=== PATIENT | female | born 1930 | race Caucasian/White ===

== ENCOUNTER → 2016-04-26 | Outpatient (CLI) | payer BC ==
[~2016-04-26] MED LIST: ADVIN25/60 INH; AMT/50 PO; APIX1TAB PO; ATV5X PO; CALC-20 PO; DOCU-94 PO; FERR325T5 PO; FRCT/ PO; FURO-85 PO; FURO40TA3 PO; HYDR-4717 PO; INSDGI SC; MAGN400T6 PO; NVLGI SC; OXGN; POLY335025 PO; PROCRIT SQ; SIMV-151 PO; SPRIN/30 INH
[2016-04-26 12:04] LABS: HEMATOCRIT 27.2 % (37-47)
== END | disposition home or self-care (01) ==
LOC: C.LAB 12:17
PROVIDERS: ATTEND Internal Medicine
DX: D64.9 Anemia, unspecified (principal); N18.4 Chronic kidney disease, stage 4 (severe)

== ENCOUNTER → 2016-05-24 | Outpatient (CLI) | payer BC ==
[2016-05-24 18:53] LABS: HEMATOCRIT 29.4 % (37-47)
== END | disposition home or self-care (01) ==
LOC: C.LABSPEC 18:42
PROVIDERS: ATTEND Internal Medicine Nephrology
DX: D64.9 Anemia, unspecified (principal); N18.4 Chronic kidney disease, stage 4 (severe)

== ENCOUNTER → 2016-06-20 | Outpatient (CLI) | payer BC ==
[2016-06-20 19:13] LABS: HEMATOCRIT 31.1 % (37-47)
--- NOTE | 2016-08-26 14:09 | CODING QUERY NO DIAGNOSIS ---
TREATMENT RENDERED WITHOUT A DIAGNOSIS 29 To promote full compliance with coding requirements relating to patient care, physician participation is requested in all cases of sap business objects developer uncertainty. Please assist us with providing a diagnosis/symptom for the test(s) below: A diagnosis/symptom was not documented on your Order. A valid diagnosis/symptom is required to bill all insurances. Please remember that we are unable to code a diagnosis of rule out, probable, possible, questionable, or suspected. DOS 06/20/16 Tests that require a diagnosis: * HEMOGLOBIN & HEMATOCRIT DIAGNOSIS: Provider Signature: Date: Thank you Stephani Sandoval Health Information Management Once completed, please kindly fax back to [phone] For questions please call [phone]
== END | disposition home or self-care (01) ==
LOC: C.LAB 19:03
PROVIDERS: ATTEND Internal Medicine
DX: D63.1 Anemia in chronic kidney disease (principal)

== ENCOUNTER → 2016-06-28 | Outpatient (CLI) | payer BC ==
[2016-06-28 13:27] LABS: HEMATOCRIT 32.7 % (37-47); MEAN CELL VOLUME 95.9 fL (80-100); MEAN CORPUSCULAR HEMOGLOBIN 31.4 pg (25-34); MEAN CORPUSCULAR HGB CONC 32.7 g/dl (32-36); MEAN PLATELET VOLUME 10.2 fL (7.4-10.4); PLATELET COUNT 155 K/uL (130-400); RED BLOOD COUNT 3.41 M/uL (4.2-5.4); WHITE BLOOD COUNT 5.56 K/uL (4.8-10.8)
[2016-06-28 13:32] LABS: ALT/SGPT 23 U/L (12-78); BLOOD UREA NITROGEN 43 mg/dl (7-18); BUN/CREATININE RATIO 22.8 (10-20); CALCIUM 9.6 mg/dl (8.5-10.1); CARBON DIOXIDE 34 mmol/L (21-32); CHLORIDE 103 mmol/L (98-107); GLUCOSE 96 mg/dl (70-99); POTASSIUM 4.2 mmol/L (3.5-5.1); SODIUM 144 mmol/L (136-145)
[2016-06-28 13:35] LABS: ALB/GLOB RATIO 1.1 (0.9-2)
[2016-06-28 13:36] LABS: ALKALINE PHOSPHATASE 84 U/L (45-117); AST/SGOT 18 U/L (15-37); FERRITIN 158.1 ng/ml (8.0-388.0); TOTAL IRON BINDING CAPACITY 235 mcg/dl (250-450)
[2016-06-28 13:40] LABS: URINE APPEARANCE CLEAR (CLEAR); URINE BILIRUBIN NEG (NEG); URINE COLOR YELLOW; URINE EPITHELIAL CELL AUTO 0-5 /lpf (0-5); URINE NITRITE NEG (NEG); URINE PH 7.5 (4.5-7.5); URINE SPECIFIC GRAVITY 1.006 (1.000-1.030); UROBILINOGEN NEG (NEG)
[2016-06-28 13:43] LABS: ESTIMATED AVERAGE GLUCOSE 131 mg/dl; HA1C FLAG Normal (Normal)
[2016-06-28 13:53] LABS: MANUAL MICROSCOPIC REQUIRED? NO; REVIEW REQ? NO
[2016-06-28 13:56] LABS: URINE PROTIEN/CREAT RATIO 0.3 (0-0.2)
== END | disposition home or self-care (01) ==
LOC: C.LAB1850 11:59
PROVIDERS: ATTEND Internal Medicine Nephrology
DX: E11.9 Type 2 diabetes mellitus without complications (principal); D64.9 Anemia, unspecified; N25.81 Secondary hyperparathyroidism of renal origin; R80.9 Proteinuria, unspecified; I12.9 Hypertensive chronic kidney disease with stage 1 through stage 4 chronic kidney disease, or unspecified chronic kidney disease; N18.4 Chronic kidney disease, stage 4 (severe)

== ENCOUNTER → 2016-07-02 | Outpatient (CLI) | payer BC ==
--- NOTE | 2016-07-02 10:54 | DIAGNOSTIC IMAGING REPORT ---
CT OF THE CHEST WITHOUT IV CONTRAST CLINICAL HISTORY: Congestive failure. Prior abnormal CT scan. COMPARISON STUDY: CT scan dated 07/08/2014, chest x-ray dated 03/20/2016 CT DOSE: 296.66 mGy.cm TECHNIQUE: CT of the thorax was performed from the thoracic inlet to the lung bases. Images are reviewed in the axial, sagittal, and coronal planes. IV contrast was not administered for this examination. FINDINGS: Thyroid: Imaged portions of the thyroid gland are normal in appearance. Thoracic aorta: The thoracic aorta is normal in course and caliber, noting standard 3 vessel arch anatomy. Heart: The heart is enlarged. There is a small pericardial effusion. There are mild to moderate coronary artery calcifications. There is a pacemaker present. Lungs and pleural spaces: There are no significant pleural effusions. There is no lobar consolidation. There is mild subpleural interstitial thickening. There are dependent atelectatic changes. Mediastinum: There are minimally enlarged mediastinal lymph nodes measuring up to 11 mm in short axis. The previously identified right paratracheal mass is no longer evident.. Joy: There is no evidence of pathologic hilar adenopathy given the limitations of a noncontrast study. Axilla: Clear. Upper abdomen: Partially visualized upper abdominal viscera is within normal limits. Skeletal structures: There are no lytic or blastic osseous lesions. The bones are osteopenic. There is a T8 and L1 compression fracture. IMPRESSION: 1. Interval resolution of the previously identified right paratracheal mass 2. Minimally enlarged mediastinal lymph nodes 3. Cardiomegaly and coronary artery calcifications 4. No pleural effusions. No evidence of focal pulmonary consolidation. 5. Bibasilar atelectasis. Mild subpleural interstitial thickening. Electronically signed by: Aldair Almonte M.D. 07/02/2016 10:52 AM Dictated Date/Time: 07/02/2016 10:46 AM
== END | disposition home or self-care (01) ==
LOC: C.CTS 10:27
PROVIDERS: ATTEND Internal Medicine Critical Care Medicine
DX: R91.8 Other nonspecific abnormal finding of lung field (principal); Z99.81 Dependence on supplemental oxygen; I25.10 Atherosclerotic heart disease of native coronary artery without angina pectoris; I51.7 Cardiomegaly

== ENCOUNTER → 2016-08-15 | Outpatient (CLI) | payer BC ==
[2016-08-15 19:13] LABS: HEMATOCRIT 34.1 % (37-47)
== END | disposition home or self-care (01) ==
LOC: C.LAB 17:15
PROVIDERS: ATTEND Internal Medicine Nephrology
DX: D64.9 Anemia, unspecified (principal); N18.4 Chronic kidney disease, stage 4 (severe)

== ENCOUNTER → 2016-09-13 | Outpatient (CLI) | payer BC ==
[2016-09-13 15:39] LABS: HEMATOCRIT 32.5 % (37-47)
--- NOTE | 2016-11-01 07:12 | CODING QUERY NO DIAGNOSIS ---
TREATMENT RENDERED WITHOUT A DIAGNOSIS To promote full compliance with coding requirements relating to patient care, physician participation is requested in all cases of turf sales person uncertainty. Please assist us with providing a diagnosis/symptom for the test(s) below: A diagnosis/symptom was not documented on your Order. A valid diagnosis/symptom is required to bill all insurances. Please remember that we are unable to code a diagnosis of rule out, probable, possible, questionable, or suspected. Tests that require a diagnosis: * HEMOGLOBIN & HEMATOCRIT DIAGNOSIS: Provider Signature: Date: Thank you Marium Dash [employer] Information Management Once completed, please kindly fax back to [phone] For questions please call [phone]
== END | disposition home or self-care (01) ==
LOC: C.LABSPEC 14:30
PROVIDERS: ATTEND Internal Medicine Nephrology
DX: D64.9 Anemia, unspecified (principal)

== ENCOUNTER → 2016-10-12 | Outpatient (CLI) | payer BC ==
[2016-10-12 15:14] LABS: HEMATOCRIT 30.6 % (37-47)
== END | disposition home or self-care (01) ==
LOC: C.LABSPEC 11:43
PROVIDERS: ATTEND Internal Medicine Nephrology
DX: D64.9 Anemia, unspecified (principal); N18.4 Chronic kidney disease, stage 4 (severe)

== ENCOUNTER → 2016-10-30 | Outpatient (CLI) | payer BC ==
[2016-10-30 11:34] LABS: HEMATOCRIT 31.4 % (37-47); MEAN CELL VOLUME 98.7 fL (80-100); MEAN CORPUSCULAR HEMOGLOBIN 32.7 pg (25-34); MEAN CORPUSCULAR HGB CONC 33.1 g/dl (32-36); MEAN PLATELET VOLUME 10.4 fL (7.4-10.4); PLATELET COUNT 126 K/uL (130-400); RED BLOOD COUNT 3.18 M/uL (4.2-5.4); WHITE BLOOD COUNT 5.31 K/uL (4.8-10.8)
[2016-10-30 11:43] LABS: ALT/SGPT 19 U/L (12-78); AST/SGOT 19 U/L (15-37); BLOOD UREA NITROGEN 39 mg/dl (7-18); CARBON DIOXIDE 34 mmol/L (21-32); CHLORIDE 105 mmol/L (98-107); GLUCOSE 187 mg/dl (70-99); POTASSIUM 4.5 mmol/L (3.5-5.1); SODIUM 142 mmol/L (136-145)
[2016-10-30 11:46] LABS: ALB/GLOB RATIO 1.1 (0.9-2); ALKALINE PHOSPHATASE 71 U/L (45-117); FERRITIN 179.8 ng/ml (8.0-388.0); TOTAL IRON BINDING CAPACITY 214 mcg/dl (250-450)
[2016-10-30 11:59] LABS: URINE PROTIEN/CREAT RATIO 0.2 (0-0.2)
[2016-10-30 14:08] LABS: URINE APPEARANCE CLEAR (CLEAR); URINE BILIRUBIN NEG (NEG); URINE COLOR YELLOW; URINE NITRITE NEG (NEG); URINE PH 7.5 (4.5-7.5); URINE SPECIFIC GRAVITY 1.015 (1.000-1.030); UROBILINOGEN NEG (NEG)
[2016-10-30 14:12] LABS: MANUAL MICROSCOPIC REQUIRED? NO; REVIEW REQ? NO
== END | disposition home or self-care (01) ==
LOC: C.LABSPEC 11:04
PROVIDERS: ATTEND Internal Medicine Nephrology
DX: D64.9 Anemia, unspecified (principal); N25.81 Secondary hyperparathyroidism of renal origin; R80.9 Proteinuria, unspecified; I10 Essential (primary) hypertension; R60.9 Edema, unspecified; N18.4 Chronic kidney disease, stage 4 (severe)

== ENCOUNTER → 2016-10-31 | Outpatient (CLI) | payer BC | END | disposition home or self-care (01) | LOC: C.LABSPEC 15:13 | PROVIDERS: ATTEND Internal Medicine Nephrology | DX: D64.9 Anemia, unspecified (principal); N25.81 Secondary hyperparathyroidism of renal origin; R80.9 Proteinuria, unspecified; R60.9 Edema, unspecified; I12.9 Hypertensive chronic kidney disease with stage 1 through stage 4 chronic kidney disease, or unspecified chronic kidney disease; N18.4 Chronic kidney disease, stage 4 (severe) ==

== ENCOUNTER → 2016-12-08 | Outpatient (CLI) | payer BC ==
[2016-12-08 13:08] LABS: HEMATOCRIT 29.7 % (37-47)
== END | disposition home or self-care (01) ==
LOC: C.LABSPEC 10:23
PROVIDERS: ATTEND Internal Medicine Nephrology
DX: D64.9 Anemia, unspecified (principal)

== ENCOUNTER → 2017-01-04 | Outpatient (CLI) | payer BC ==
[2017-01-04 15:41] LABS: HEMATOCRIT 29.7 % (37-47)
== END | disposition home or self-care (01) ==
LOC: C.LABSPEC 09:45
PROVIDERS: ATTEND Internal Medicine Nephrology
DX: D64.9 Anemia, unspecified (principal); N18.4 Chronic kidney disease, stage 4 (severe)

== ENCOUNTER → 2017-02-26 | Outpatient (CLI) | payer BC ==
[2017-02-26 17:24] LABS: HEMATOCRIT 31.3 % (37-47); HEMOGLOBIN 9.9 g/dL (12.0-16.0)
--- NOTE | 2017-05-21 10:46 | CODING QUERY NO DIAGNOSIS ---
: 1929 To promote full compliance with coding requirements relating to patient care, physician participation is requested in all cases of hydraulic specialist uncertainty. Please assist us with providing a diagnosis/symptom for the test(s) below: A diagnosis/symptom was not documented on your order. A valid diagnosis/symptom is required to bill all insurances. Please remember that we are unable to code a diagnosis of rule out, probable, possible, questionable, or suspected. Tests that require a diagnosis: DOS: 12/2016 through 10/2017 * Hemoglobin + Hematocrit (recurring order, unable to read some dates on Allscript order) DIAGNOSIS: Provider Signature: Date: Thank you Jade Rojas Health Information Management Once completed, please kindly fax back to [phone] For questions please call [phone]
== END | disposition home or self-care (01) ==
LOC: C.LABSPEC 16:20
PROVIDERS: ATTEND Internal Medicine Nephrology
DX: D64.9 Anemia, unspecified (principal); N18.4 Chronic kidney disease, stage 4 (severe)

== ENCOUNTER → 2017-02-28 | Outpatient (CLI) | payer BC ==
[2017-03-01 12:10] LABS: HEMATOCRIT 29.7 % (37-47); MEAN CORPUSCULAR HEMOGLOBIN 31.3 pg (25-34); MEAN CORPUSCULAR HGB CONC 31.3 g/dl (32-36); MEAN PLATELET VOLUME 10.3 fL (7.4-10.4); PLATELET COUNT 135 K/uL (130-400); RED BLOOD COUNT 2.97 M/uL (4.2-5.4); WHITE BLOOD COUNT 4.78 K/uL (4.8-10.8)
[2017-03-01 12:18] LABS: BLOOD UREA NITROGEN 44 mg/dl (7-18); BUN/CREATININE RATIO 24.8 (10-20); CALCIUM 8.9 mg/dl (8.5-10.1); CARBON DIOXIDE 34 mmol/L (21-32); CHLORIDE 100 mmol/L (98-107); CREATININE 1.79 mg/dl (0.60-1.20); GLUCOSE 191 mg/dl (70-99); POTASSIUM 4.1 mmol/L (3.5-5.1); SODIUM 137 mmol/L (136-145)
[2017-03-01 12:23] LABS: FERRITIN 171.1 ng/ml (8.0-388.0); TOTAL IRON BINDING CAPACITY 225 mcg/dl (250-450)
== END | disposition home or self-care (01) ==
LOC: C.LABSPEC 16:54
PROVIDERS: ATTEND Internal Medicine Nephrology
DX: D64.9 Anemia, unspecified (principal); N25.81 Secondary hyperparathyroidism of renal origin; R60.9 Edema, unspecified; R80.9 Proteinuria, unspecified; I10 Essential (primary) hypertension

== ENCOUNTER → 2017-02-28 | Outpatient (CLI) | payer BC ==
[2017-03-02 16:11] LABS: URINE APPEARANCE CLEAR (CLEAR); URINE BILIRUBIN NEG (NEG); URINE COLOR YELLOW; URINE EPITHELIAL CELL AUTO >30 /lpf (0-5); URINE NITRITE NEG (NEG); URINE PH 7.5 (4.5-7.5); URINE SPECIFIC GRAVITY 1.019 (1.000-1.030); UROBILINOGEN NEG (NEG)
[2017-03-02 16:20] LABS: MANUAL MICROSCOPIC REQUIRED? NO; REVIEW REQ? NO
[2017-03-02 16:27] LABS: URINE PROTIEN/CREAT RATIO 0.2 (0-0.2); URINE TOTAL PROTEIN 20.6 mg/dl (0-11.9)
== END | disposition home or self-care (01) ==
LOC: C.LABSPEC 16:50
PROVIDERS: ATTEND Internal Medicine Nephrology
DX: D64.9 Anemia, unspecified (principal); R60.9 Edema, unspecified; I10 Essential (primary) hypertension; R80.9 Proteinuria, unspecified; N25.81 Secondary hyperparathyroidism of renal origin

== ENCOUNTER → 2017-03-28 | Outpatient (CLI) | payer BC ==
[2017-03-28 14:17] LABS: HEMATOCRIT 28.4 % (37-47)
== END | disposition home or self-care (01) ==
LOC: C.LABSPEC 13:57
PROVIDERS: ATTEND Internal Medicine Nephrology
DX: D64.9 Anemia, unspecified (principal); N18.4 Chronic kidney disease, stage 4 (severe)

== ENCOUNTER → 2017-04-30 | Outpatient (CLI) | payer BC ==
--- NOTE | 2017-04-30 17:55 | DIAGNOSTIC IMAGING REPORT ---
VENOUS DOPP LOWER EXT UNILAT CLINICAL HISTORY: R LEG DVT PHLEBITIS,THROMBO PHLEBITIS pain. Edema. TECHNIQUE: Venous Doppler COMPARISON STUDY: 08/26/2015 FINDINGS: Negative study IMPRESSION: Negative study The above report was generated using voice recognition software. It may contain grammatical, syntax or spelling errors. Electronically signed by: Faizan Tsang M.D. 04/30/2017 5:54 PM Dictated Date/Time: 04/30/2017 5:52 PM
== END | disposition home or self-care (01) ==
LOC: C.ULTR 17:12
PROVIDERS: ATTEND Internal Medicine
DX: I80.201 Phlebitis and thrombophlebitis of unspecified deep vessels of right lower extremity (principal)

== ENCOUNTER → 2017-05-22 | Outpatient (CLI) | payer BC ==
[2017-05-22 17:37] LABS: HEMATOCRIT 29.4 % (37-47); HEMOGLOBIN 9.4 g/dL (12.0-16.0)
--- NOTE | 2017-06-26 13:26 | CODING QUERY NO DIAGNOSIS ---
TREATMENT RENDERED WITHOUT A DIAGNOSIS To promote full compliance with coding requirements relating to patient care, physician participation is requested in all cases of chief telephone operator uncertainty. Please assist us with providing a diagnosis/symptom for the test(s) below: A diagnosis/symptom was not documented on your Order. A valid diagnosis/symptom is required to bill all insurances. Please remember that we are unable to code a diagnosis of rule out, probable, possible, questionable, or suspected. Tests that require a diagnosis: DOS: 06/01/17 *HEMOGLOBIN & HEMATOCRIT DIAGNOSIS: Provider Signature: Date: Thank you Paula Burns No[employer] Trav[employer] Information Management Once completed, please kindly fax back to [phone] For questions please call [phone]
== END | disposition home or self-care (01) ==
LOC: C.LABSPEC 16:15
PROVIDERS: ATTEND Internal Medicine Nephrology
DX: D64.9 Anemia, unspecified (principal); N18.4 Chronic kidney disease, stage 4 (severe)

== ENCOUNTER → 2017-07-17 | Outpatient (CLI) | payer BC ==
[2017-07-17 18:21] LABS: HEMATOCRIT 29.4 % (37-47); HEMOGLOBIN 9.5 g/dL (12.0-16.0)
== END | disposition home or self-care (01) ==
LOC: C.LABSPEC 17:40
PROVIDERS: ATTEND Internal Medicine Nephrology
DX: D64.9 Anemia, unspecified (principal); N18.4 Chronic kidney disease, stage 4 (severe)

== ENCOUNTER → 2017-08-14 | Outpatient (CLI) | payer BC ==
[2017-08-14 14:23] LABS: HEMOGLOBIN 9.1 g/dL (12.0-16.0)
== END | disposition home or self-care (01) ==
LOC: C.LABSPEC 14:12
PROVIDERS: ATTEND Internal Medicine Nephrology
DX: D64.9 Anemia, unspecified (principal); N18.4 Chronic kidney disease, stage 4 (severe)

== ENCOUNTER → 2017-08-19 | Outpatient (CLI) | payer BC | END | disposition home or self-care (01) | LOC: C.PATHSPEC 17:57 | PROVIDERS: ATTEND Dermatology | DX: L82.1 Other seborrheic keratosis (principal) ==

== ENCOUNTER → 2017-11-08 | Outpatient (CLI) | payer BC ==
[2017-11-06 17:22] LABS: HEMOGLOBIN 8.9 g/dL (12.0-16.0); MEAN CELL VOLUME 97.9 fL (80-100); MEAN CORPUSCULAR HEMOGLOBIN 31.1 pg (25-34); MEAN CORPUSCULAR HGB CONC 31.8 g/dl (32-36); MEAN PLATELET VOLUME 10.5 fL (7.4-10.4); PLATELET COUNT 135 K/uL (130-400); RED CELL DISTRIBUTION WIDTH CV 13.6 % (11.5-14.5); RED CELL DISTRIBUTION WIDTH SD 48.5 fL (36.4-46.3); WHITE BLOOD COUNT 6.16 K/uL (4.8-10.8)
[2017-11-06 17:47] LABS: ALBUMIN 3.9 gm/dl (3.4-5.0); BLOOD UREA NITROGEN 49 mg/dl (7-18); CALCIUM 8.9 mg/dl (8.5-10.1); CARBON DIOXIDE 32 mmol/L (21-32); CREATININE 1.78 mg/dl (0.60-1.20); GLUCOSE 108 mg/dl (70-99); PHOSPHORUS 2.8 mg/dl (2.5-4.9); POTASSIUM 4.3 mmol/L (3.5-5.1); SODIUM 141 mmol/L (136-145); TRANSFERRIN 177 mg/dl (200-360)
== END | disposition home or self-care (01) ==
LOC: C.LABSPEC 11:40
PROVIDERS: ATTEND Internal Medicine Nephrology
DX: D50.9 Iron deficiency anemia, unspecified (principal); N25.81 Secondary hyperparathyroidism of renal origin; R80.9 Proteinuria, unspecified; R60.9 Edema, unspecified; N18.4 Chronic kidney disease, stage 4 (severe)

== ENCOUNTER → 2017-12-05 | Outpatient (CLI) | payer BC ==
[2017-12-05 16:02] LABS: HEMATOCRIT 29.5 % (37-47); HEMOGLOBIN 9.3 g/dL (12.0-16.0)
== END | disposition home or self-care (01) ==
LOC: C.LABSPEC 15:24
PROVIDERS: ATTEND Internal Medicine Nephrology
DX: D64.9 Anemia, unspecified (principal); N18.4 Chronic kidney disease, stage 4 (severe)

== ENCOUNTER 2018-12-31 17:20 | Observation (INO) ==
[2018-12-31] MEDS ORDERED: ASPIRIN CHEW 324 MG PO STA (18:05)
[2018-12-31] MEDS ORDERED: NITROGLYCERIN 2% OINTMENT 30GM TUBE EXT ONE (18:05)
[2018-12-31 18:14] LABS: Basophils # (auto) 0.02 K/uL (0-0.2); Basophils % (auto) 0.4 %; Eosinophils # (auto) 0.34 K/uL (0-0.5); Eosinophils % (auto) 7.1 %; Hematocrit (blood only) 31.4 % (37-47); Hemoglobin 9.8 g/dL (12.0-16.0); Lymphocytes # (auto) 0.74 K/uL (1.2-3.4); Lymphocytes % (auto) 15.4 %; Mean Corpuscular Hemoglobin 31.6 pg (25-34); Mean Corpuscular Hgb Conc 31.2 g/dL (32-36); Mean Corpuscular Volume 101.3 fL (80-100); Mean Platelet Volume 10.1 fL (7.4-10.4); Monocytes # (auto) 0.42 K/uL (0.11-0.59); Monocytes % (auto) 8.7 %; Neutrophils # (auto) 3.29 K/uL (1.4-6.5); Neutrophils % (auto) 68.4 %; Platelet Count 146 K/uL (130-400); RDW Coefficient of Variation 14.2 % (11.5-14.5); RDW Standard Deviation 52.3 fL (36.4-46.3); White Blood Count 4.81 K/uL (4.8-10.8)
--- NOTE | 2018-12-31 18:27 | XRay Report ---
XR chest 1V portable HISTORY: Atypical Chest Pain COMPARISON: Chest 04/12/2018. FINDINGS: The cardiac silhouette remains moderately enlarged. No pneumothorax. Suspect trace bilatera l pleural effusions and mild congestive change. This is similar to the prior study. Stable linear sca rlike density within the left lower lung zone. Right-sided single lead pacemaker is again noted. No n ew focal lung consolidations to suggest pneumonia. IMPRESSION: Cardiomegaly with mild congestive change and trace bilateral pleural effusions. This is similar to th e prior study. Electronically signed by: Liban Winston M.D. 12/31/2018 6:25 PM
[2018-12-31 18:32] LABS: Albumin Level 4.4 gm/dl (3.4-5.0); BUN Creatinine Ratio 25.9 (10-20); Creatinine Clr Calc Pharmacy 22.2 ml/min; Est GFR (African American) 32.5; Est GFR (Non-African American) 28.1; Potassium 4.1 mmol/L (3.5-5.1)
[2018-12-31 18:37] LABS: Albumin Globulin Ratio 1.1 (0.9-2); Bilirubin,Total 0.3 mg/dl (0.2-1); Globulin 3.9 gm/dl (2.5-4.0); Total Protein 8.3 gm/dl (6.4-8.2); Troponin I 0.044 ng/ml (0-0.045)
[2018-12-31] MEDS ORDERED: HydrALAZINE HCL 20 MG/ML VIAL IV STA ×2 (18:39→19:18)
[2018-12-31] MEDS ORDERED: LORazepam 0.5 MG TAB PO STA (19:54)
--- NOTE | 2018-12-31 20:28 | Emergency Department Note ---
Entered by Alistair Koenig acting as a scribe for Vinay Fortune DO History of Present Illness General Chief complaint: Chest Pain Stated complaint: CHEST PAIN, HYPERTENSION Source: patient History of Present Illness Onset (ago): hour(s) (5.5) Location: chest Pain Consistency: + now resolved Quality: + other (pressure) Associated symptoms: + denies other symptoms (jaw pain, arm pain, sweating), + headaches and + shortness of breath; no nausea/vomiting The patient is an 88 y/o female w/ PMHx of CHF, CKD, HTN who presents to the ED w/ CC of now resolved chest pressure that lasted an hour an began 5.5 hours ago. The patient states she felt like she was having a heart attack today. She reports her heart was racing and pounding out of her chest. The patient notes she had chest pressure that lasted an hour. She states she currently has a headache, and she was short of breath during her episode. The patient denies jaw pain, arm pain, nausea, vomiting, and sweating during her episode. She reports a history of an [place] and notes her symptoms felt very similar to today's episode. The patient notes her at home nurse took her blood pressure, and it was in the 190s systolic. She denies current pain. The patient also denies a history or COPD and asthma. Home Medications Home Medications Medication Instructions Recorded Confirmed Type magnesium oxide 400 mg PO QAM #0 04/09/11 12/31/18 History simvastatin 20 mg PO HS #0 04/07/14 12/31/18 History polyethylene glycol 3350 17 g PO DAILY #0 06/07/14 12/31/18 History docusate sodium [Colace] 100 mg PO BID #0 cap 03/23/15 12/31/18 History Eliquis 2.5 mg PO BID #0 08/26/15 12/31/18 History Lantus U-100 Insulin 8 units SC DAILY #0 vial 08/26/15 12/31/18 History amitriptyline 50 mg PO HS #0 03/19/16 12/31/18 History hydralazine 50 mg PO BID #0 tab 03/19/16 12/31/18 History PreserVision AREDS 1 cap PO DAILY 02/13/18 12/31/18 History Systane Balance 1 drp OPB BID 02/13/18 12/31/18 History tifmelsbdf-utarunpgzlmic-lkez 1 - 2 tab PO Q4 PRN 02/13/18 12/31/18 History darbepoetin grayson in polysorbat 40 mcg SUBCUT MONTHLY 02/13/18 12/31/18 History diclofenac sodium [Voltaren] 4 g TOPICAL BID 02/13/18 12/31/18 History ferrous sulfate [iron] 325 mg PO DAILY 02/13/18 12/31/18 History lorazepam 0.5 mg PO BID 02/13/18 12/31/18 History metronidazole 1 applic TOPICAL BID 02/13/18 12/31/18 History nystatin-triamcinolone 1 applic TOPICAL BID 02/13/18 12/31/18 History calcium carbonate-vitamin D3 1 tab PO BID 04/12/18 12/31/18 History [Calcium 600 + D(3)] insulin aspart U-100 [Novolog 4 unit SUBCUT TIDM 04/12/18 12/31/18 History U-100 Insulin aspart] psyllium 1 dose PO DIRECTED 04/12/18 12/31/18 History furosemide 40 mg tablet 40 mg PO DAILY tab 11/18/18 12/31/18 History Allergies Allergy/AdvReac Type Severity Reaction Status Date / Time celery Allergy Severe pt states Verified 12/31/18 17:58 her "throat swells". hydrocodone Allergy Intermediate RASH, Verified 12/31/18 17:58 HALLUCINATIONS DANIEL Inhibitors Allergy Unknown on Verified 12/31/18 17:58 [facility] record, pt not aware Past Med/Surg History Medical History Chronic kidney disease, stage 4 (severe) (Chronic) Anemia (Chronic) Hypertension (Chronic) Proteinuria (Chronic) Secondary hyperparathyroidism (Chronic) Anemia (Acute) CAD (coronary artery disease) (Acute) CHF (congestive heart failure) (Acute) Chronic respiratory failure (Acute) Diabetes 1.5, managed as type 2 (Acute) Diabetic peripheral neuropathy (Acute) HTN (hypertension) (Acute) Hx of chest pain (Acute) Hx of herpes zoster (Acute) Pacemaker (Acute) Renal cyst (Acute) Skin cancer (Acute) Stroke (Acute) Atrial fibrillation Eye infection Bilateral eyes. Diagnosed approximately 08/03/18 Pulmonary hypertension Surgical History H/O section (Acute) Family History Other Family history non-contributory Social History Preferred Language: Iraqi Communication Ability: Effective Hospital Monitor Required: No Beliefs That Will Affect Care: None marital status: / Current Living Situation: Alone Feels Safe at Home: Yes Smoking Status: Former smoker Second Hand Exposure: No ; Hx Alcohol Use: No Hx Substance Use: No Review of Systems See HPI for pertinent positives & negatives. and A total of 10 systems reviewed and were otherwise negative Physical Exam Vital Signs Vital Signs - 24 hr 12/31/18 17:23 12/31/18 17:31 12/31/18 17:41 Temperature 36.6 C Temperature Source Oral Sepsis Recent Fever Within 48 Hours No Sepsis Action Taken by Nursing No Action Required Pulse Rate 81 Pulse Rate [Finger] Pulse Rhythm Respiratory Rate 20 Respiratory Effort / Characteristics Non-Labored Spontaneous Non-Labored Spontaneous Respiratory Depth Normal Respiratory Pattern Regular Blood Pressure 201/91 H Blood Pressure [Left Arm] Blood Pressure Mean 127 Blood Pressure Mean [Left Arm] Pulse Oximetry 95 100 Oxygen Delivery Method Nasal Cannula Nasal Cannula Room Air Oxygen Flow Rate 3 3 3 12/31/18 17:44 12/31/18 19:01 12/31/18 19:12 Temperature Temperature Source Sepsis Recent Fever Within 48 Hours Sepsis Action Taken by Nursing Pulse Rate 73 Pulse Rate [Finger] 71 75 Pulse Rhythm Regular Respiratory Rate 18 Respiratory Effort / Characteristics Respiratory Depth Respiratory Pattern Blood Pressure Blood Pressure [Left Arm] 205/95 H 197/89 H Blood Pressure Mean Blood Pressure Mean [Left Arm] 131 125 Pulse Oximetry 100 100 Oxygen Delivery Method Nasal Cannula Nasal Cannula Oxygen Flow Rate 3 3 12/31/18 19:30 12/31/18 20:14 Temperature Temperature Source Sepsis Recent Fever Within 48 Hours Sepsis Action Taken by Nursing Pulse Rate Pulse Rate [Finger] 79 96 H Pulse Rhythm Respiratory Rate 18 Respiratory Effort / Characteristics Respiratory Depth Respiratory Pattern Blood Pressure Blood Pressure [Left Arm] 187/85 H 167/66 H Blood Pressure Mean Blood Pressure Mean [Left Arm] 119 99 Pulse Oximetry 100 Oxygen Delivery Method Nasal Cannula Oxygen Flow Rate 3 GENERAL: Cachectic, sitting up in bed, talking in full sentences, anxious. EYE EXAM: normal conjunctiva OROPHARYNX: no exudate, no erythema, lips, buccal mucosa, and tongue normal and mucous membranes are moist NECK: supple, no nuchal rigidity, no adenopathy, non-tender. no JVD. LUNGS: Clear to auscultation. Normal chest wall mechanics HEART: Positive RAGINI, S1 normal and S2 normal ABDOMEN: abdomen soft, non-tender, normo-active bowel sounds, no masses, no rebound or guarding. BACK: Back is symmetrical on inspection and there is no deformity, no midline tenderness, no CVA tenderness. SKIN: no rashes and no bruising UPPER EXTREMITIES: upper extremities are grossly normal. LOWER EXTREMITIES: No pitting edema. Calves are equal bilaterally. NEURO EXAM: Normal sensorium, cranial nerves II-XII grossly intact, normal speech, no gross weakness of arms, no gross weakness of legs. Course ED COURSE: Vital signs were reviewed and showed HTN. The patients medical record was reviewed The above diagnostic studies were performed and reviewed. ED treatments and interventions as stated above. 1731: The patient was evaluated in room B05. A complete history and physical examination was performed. 1838: Upon reevaluation, the patient is resting.I discussed my findings with the patient and she understands and agrees with the treatment plan. 1902: I reviewed the patient's case with Marie Prajapati PA-C, [facility] Hospitalist - Attending Dr. Polanco. She will evaluate the patient for further management. Based on the patients age, coexisting illnesses, exam and lab findings the decision to treat as an inpatient was made. The patient remained stable while under my care. The patient will be evaluated for further management. Administered Medications Discontinued Medications Aspirin (Aspirin) 324 mg PO NOW STA Stop: 12/31/18 18:06 Last Admin: 12/31/18 18:14 Dose: 324 mg Documented by: [id number] Hydralazine HCl (Hydralazine Hcl) 10 mg IV NOW STA Stop: 12/31/18 18:40 Last Admin: 12/31/18 18:57 Dose: 10 mg Documented by: [id number] Hydralazine HCl (Hydralazine Hcl) 10 mg IV NOW STA Stop: 12/31/18 19:19 Last Admin: 12/31/18 19:23 Dose: 10 mg Documented by: [id number] Lorazepam (Ativan) 0.5 mg PO NOW STA Stop: 12/31/18 19:55 Last Admin: 12/31/18 20:07 Dose: 0.5 mg Documented by: [id number] Nitroglycerin (Nitro-Bid 2%) 2 inch EXT NOW ONE Stop: 12/31/18 18:06 Last Admin: 12/31/18 18:14 Dose: 2 inch Documented by: [id number] Medical Decision Making Differential Diagnosis Differential diagnoses includes but is not limited to acute coronary syndrome, myocardial infarction, pericarditis, pulmonary embolus, aortic dissection, pneumonia, pneumothorax, musculoskeletal, shingles, esophageal. Medical Records Attestation: I reviewed the patient's medical records. Home Medications Current Medication List: was personally reviewed by me Laboratory Data Attestation: I reviewed the patient's lab results. Result diagrams: 12/31/18 17:54 12/31/18 17:54 Lab Results 12/31/18 12/31/18 Range/Units 17:54 17:54 WBC 4.81 (4.8-10.8) K/uL RBC 3.10 L (4.2-5.4) M/uL Hgb 9.8 L (12.0-16.0) g/dL Hct 31.4 L (37-47) % MCV 101.3 H (80-100) fL MCH 31.6 (25-34) pg MCHC 31.2 L (32-36) g/dL RDW Std Deviation 52.3 H (36.4-46.3) fL RDW Coeff of Josh 14.2 (11.5-14.5) % Plt Count 146 (130-400) K/uL MPV 10.1 (7.4-10.4) fL Immature Gran % (Auto) 0.0 % Neut % (Auto) 68.4 % Lymph % (Auto) 15.4 % [place] % (Auto) 8.7 % Eos % (Auto) 7.1 % Baso % (Auto) 0.4 % Immature Gran # (Auto) 0.00 (0.00-0.02) K/uL Neut # (Auto) 3.29 (1.4-6.5) K/uL Lymph # (Auto) 0.74 L (1.2-3.4) K/uL [place] # (Auto) 0.42 (0.11-0.59) K/uL Eos # (Auto) 0.34 (0-0.5) K/uL Baso # (Auto) 0.02 (0-0.2) K/uL Sodium 140 (136-145) mmol/L Potassium 4.1 (3.5-5.1) mmol/L Chloride 100 (98-107) mmol/L Carbon Dioxide 34 H (21-32) mmol/L Anion Gap 6.0 (3-11) BUN 42 H (7-18) mg/dl Creatinine 1.61 H (0.6-1.2) mg/dl Est Cr Clr Drug Dosing 22.2 ml/min Est GFR ( Amer) 32.5 Est GFR (Non-Af Amer) 28.1 BUN/Creatinine Ratio 25.9 H (10-20) Glucose 123 H (70-99) mg/dl Calcium 10.0 (8.5-10.1) mg/dl Total Bilirubin 0.3 (0.2-1) mg/dl AST 19 (15-37) U/L ALT 19 (12-78) U/L Alkaline Phosphatase 77 (45-117) U/L Troponin I 0.044 (0-0.045) ng/ml Total Protein 8.3 H (6.4-8.2) gm/dl Albumin 4.4 (3.4-5.0) gm/dl Globulin 3.9 (2.5-4.0) gm/dl Albumin/Globulin Ratio 1.1 (0.9-2) Lipase 258 (73-393) U/L Imaging Data Radiologist's Impression: Radiology results as stated below per my review and the radiologist's interpretation: XR chest 1V portable HISTORY: Atypical Chest Pain COMPARISON: Chest 04/12/2018. FINDINGS: The cardiac silhouette remains moderately enlarged. No pneumothorax. Suspect trace bilateral pleural effusions and mild congestive change. This is similar to the prior study. Stable linear scarlike density within the left lower lung zone. Right-sided single lead pacemaker is again noted. No new focal lung consolidations to suggest pneumonia. IMPRESSION: Cardiomegaly with mild congestive change and trace bilateral pleural effusions. This is similar to the prior study. Electronically signed by: Liban Winston M.D. 12/31/2018 6:25 PM ECG Data Attestation: I personally reviewed and interpreted this ECG as follows: Indication: chest pain Rate (beats per minute): 76 Rhythm: junctional (accelerated) Findings: + other (Wide complex. ST changes in the septal leads.), + LBBB and + T-wave inversion (Anterior, lateral, inferior) Comparison ECG Date: from (04/12/18) Change: the following changes noted (ST elevation in V2 is new.) Additional Comments: REPEAT EKG IN THE SAME ED VISIT: Wide complex junctional rhythm with a rate of 80. LBBB present. TWI in anterior, lateral, and inferior leads. - Resolution of ST elevation in V2. Blood Pressure Blood Pressure Findings: Elevated blood pressure Blood Pressure Disposition: further management by hospitalist [place] Narrative Patient is an 88-year-old female who presents the ER for chest pain and increased heart rate around 2 PM today. Patient admits to some shortness of breath associated with this. She notes that she does have a previous history of a previous [place]. She is a symptomatic at this time. She was sniffily hypertensive with systolic blood pressures of 210 on arrival. IV was established blood work was obtained and showed no significant leukocytosis or anemia. BMP with a creatinine 1.6. LFTs bilirubin and troponin was negative but the troponin was detectable. Lipase was normal. Chest x-ray was unremarkable. EKG was not significant change from previous. She was given aspirin, Nitropaste and 2 dose of hydralazine. Systolic blood pressures eventually trended down to the 170s. She has some recurrence of her chest pain and repeat EKG showed no acute changes. She was updated bedside and discussed with the hospitalist. Impression & Plan Hypertensive urgency, Chest pain, precordial Critical Care Time Critical Care Time: Yes Total Critical Care Time: 30 I have personally spent 30 minutes of critical care time in the direct management of this patient. This includes bedside care, interpretation of diagnostic studies, and testing, discussion with consultants, patient, and family members, and other required patient management activities. This 30 minutes is in excess of all separately billable procedures. Discharge Plan Visit Data Chief Complaint: Chest Pain Stated Complaint: CHEST PAIN, HYPERTENSION ED Provider: Vinay Fortune Discharge Problem: Hypertensive urgency, Chest pain, precordial Patient Disposition: Being Evaluated by Hospitalist Forms Stand Alone Forms: My [facility] Prescriptions Prescriptions: No Action magnesium oxide 400 mg Capsule 400 mg PO QAM Qty: 0 RF: 0 simvastatin 20 mg Tablet 20 mg PO HS Qty: 0 RF: 0 polyethylene glycol 3350 17 gram Powder In Packet 17 g PO DAILY Qty: 0 RF: 0 docusate sodium [Colace] 100 mg Capsule 100 mg PO BID Qty: 0 RF: 0 Lantus U-100 Insulin 100 unit/mL Solution 8 units SC DAILY Qty: 0 RF: 0 Eliquis 2.5 mg Tablet 2.5 mg PO BID Qty: 0 RF: 0 amitriptyline 50 mg Tablet 50 mg PO HS Qty: 0 RF: 0 hydralazine 50 mg Tablet 50 mg PO BID Qty: 0 RF: 0 furosemide 40 mg tablet 40 mg PO DAILY RF: 0 kdfomkegpr-efrzgcaebsxqi-brgy 50-325-40 mg tablet 1 - 2 tab PO Q4 PRN (Reason: Headache) RF: 0 lorazepam 0.5 mg tablet 0.5 mg PO BID RF: 0 darbepoetin grayson in polysorbat 40 mcg/mL solution 40 mcg subcut MONTHLY RF: 0 ferrous sulfate [iron] 325 mg (65 mg iron) Tablet 325 mg PO DAILY RF: 0 PreserVision AREDS [id number],320-226-200 [id number]-[id number] Capsule 1 cap PO DAILY RF: 0 Systane Balance 0.6 % Drops 1 drp OPB BID RF: 0 nystatin-triamcinolone 100,000-0.1 unit/gram-% Ointment 1 applic TOPICAL BID RF: 0 metronidazole 0.75 % Cream 1 applic TOPICAL BID RF: 0 diclofenac sodium [Voltaren] 1 % Gel 4 g TOPICAL BID RF: 0 Novolog U-100 Insulin aspart 100 unit/mL Solution 4 unit SUBCUT TIDM RF: 0 calcium carbonate-vitamin D3 [Calcium 600 + D(3)] 600 mg(1,500mg) -400 unit Tablet 1 tab PO BID RF: 0 psyllium Powder 1 dose PO DIRECTED RF: 0 Referrals Referrals: Cedric Sharp DO [Primary Care Provider] - The scribe's documentation has been prepared under my direction and personally reviewed by me in its entirety. I confirm that the note above accurately reflects all work, treatment, procedures, and medical decision making performed by me.
--- NOTE | 2018-12-31 21:31 | History and Physical Report ---
DATE OF ADMISSION: 12/31/2018 CHIEF COMPLAINT: Chest pain. HISTORY OF PRESENT ILLNESS: This is an 88-year-old female with a past medical history significant for diabetes, chronic kidney stage IV, hyperlipidemia, secondary hyperparathyroidism, pulmonary hypertension, atrial fibrillation, CAD, diastolic heart failure, chronic respiratory failure on 3 liters oxygen all the time, history of CVA, hypertension, history of vertebral compression fractures, anemia of chronic kidney disease, iron deficiency anemia status post cardiac pacemaker, anxiety, history of pelvic fracture. The patient lives alone, she has caregiver who checks on her every day. She walks without any support, was brought in because of chest pain in the afternoon. The patient states she started having left-sided chest pressure like feeling, no radiation and she is anxious. IN Er her blood pressure was high in 200s, given IV hydralazine and nitro paste and also given aspirin 324 mg. Troponin is negative. EKG, no significant change. Currently, she says the pain is gone, but seems to be coming back again. She states she is feeling anxious, very hard of hearing. Sons are in the room and caregiver in the room. The patient has complaints of some headaches. Vision is okay. She is eating okay. There is no dysphagia, no nausea, no lightheadedness, no dizziness, no shortness of breath, no cough, no fevers, no abdominal pain. Normal bowel and bladder movements. She has constipation uses stool softener, but denies any blood in the stools or black stools. No rash. ALLERGIES: DANIEL INHIBITORS, DISOPYRAMIDE PHOSPHATE, NORPACE, VICODIN. PAST MEDICAL HISTORY: As mentioned above. PAST SURGICAL HISTORY: , pacemaker insertion, removal of ruptured appendix at age 19, cataract surgery. MEDICATIONS: The patient is on Ativan 0.5 mg p.o. b.i.d., Eliquis 2.5 mg p.o. b.i.d., Lasix 40 mg p.o. daily, amitriptyline 50 mg p.o. at bedtime, Ferrocite 1 or 2 tablets every 4 hours p.r.n., diclofenac sodium 4 grams on the skin b.i.d. as directed, Lantus 8 units under skin daily, simvastatin 20 mg p.o. at bedtime, hydralazine 50 mg p.o. b.i.d., NovoLog 4 units t.i.d. with meals, Colace 100 mg p.o. b.i.d., multivitamins with minerals 1 capsule daily, Systane 0.6 ophthalmic solution as directed, Darbepoetin grayson as directed, ferrous sulfate 325 mg p.o. daily, magnesium oxide 400 mg p.o. daily, MiraLax 17 g p.o. daily, oxygen 3 liters, calcium with vitamin D 1 tablet b.i.d. FAMILY HISTORY: Significant for father has heart disorder. Mother has dementia. Father has diabetes. Maternal and paternal grandmother has diabetes. SOCIAL HISTORY: , lives alone. Caregiver is coming daily. Quit smoking in 1984. No alcohol use, no drug use. REVIEW OF SYSTEMS: As per HPI. Rest of review of systems negative. PHYSICAL EXAMINATION: GENERAL: The patient is old and frail, not in acute distress. VITAL SIGNS: Temperature 36.6, pulse 79, respiratory rate 18, blood pressure when she came in was 201/97, currently 187/85, oxygen 100% on 3 liters. HEENT: No pallor, no icterus. Pupils equal, round, and reactive to light. NECK: No JVD, no neck masses, no carotid bruits. CARDIOVASCULAR: S1, S2 heard, regular rate and rhythm, no murmur, no gallop. RESPIRATORY SYSTEM: Normal AP diameter. No accessory muscle use. No wheezing, no crackles. ABDOMEN: Soft, bowel sounds present, nontender. No distention. CENTRAL NERVOUS SYSTEM: Alert, awake and oriented. Speech is clear. Hard of hearing. Moves extremities, unable to lift her leg up and hold there. No pronator drift. Coordination of movements normal. External ocular muscles intact. EXTREMITIES: Trace pedal edema. No erythema seen. LABORATORIES DATA: WBC 4.8, hemoglobin 9.8, hematocrit 31.4, platelets 146. Sodium 140, potassium 4.1, chloride 100, bicarbonate 34, BUN 42, creatinine 1.6, serum glucose 123, calcium 10, total bilirubin 0.3, AST 19, ALT 19, alkaline phosphatase 77. Troponin-I 0.044, lipase 258. Chest x-ray: Cardiomegaly with mild congestion, trace bilateral pleural effusion that is similar to prior study. EKG shows sinus rhythm. No significant change from previous EKG. ASSESSMENT AND PLAN: This is an 88-year-old female who presents with chest pain and hypertensive urgency. 1. Chest pain. Initial workup is unremarkable. We will continue nitro paste and the patient is given full dose aspirin in the ER. History of coronary artery disease in the past. The patient is already on statin. We will follow serial cardiac enzymes, echocardiogram. Monitor in tele floor. Consult cardiology in a.m. for further recommendation. 2. Hypertensive urgency. Systolic blood pressure was 200 when she came in, was given iv hydralazine and nitro paste. Continue nitro paste 1 inch q. 6 hours and IV Lopressor p.r.n. Continue home blood pressure medications, monitor the blood pressure and adjust. 3. Diastolic congestive heart failure. Does not seem to be in acute failure. She is on Lasix 40 mg daily at home, which we will continue and hydralazine we will continue. Follow echocardiogram, follow daily I's and O's, daily weights. 4. Chronic kidney disease stage IV. Presented with 1.6 around baseline. Follow the labs. If any concern, consult Nephrology. 5. History of atrial fibrillation status post pacemaker, on Eliquis. Not on any rate-controlling medications. Currently also placed on IV Lopressor p.r.n. 6. Iron deficiency anemia. Continue iron supplements. 7. Anemia of chronic kidney disease, on iron supplements and also get Darbepoetin monthly. 8. Diabetes. We will cut back Lantus to 4 units daily and we will keep her n.p.o. after midnight and insulin sliding scale. Follow the blood sugars. 9. Anxiety. Continue home Ativan. 10. Hyperlipidemia. Continue statin. 11. Pulmonary hypertension, severe on last echo. We will follow the echocardiogram. 12. Chronic respiratory failure on 3 liters oxygen. secondary to pulmonary hypertension, congestive heart failure. 13. pulmonary nodules. Last February, CAT scan showed stable solid 3 mm right apical nodule and multiple additional small punctuate nodules in the apices. Nonspecific mediastinal and supraclavicular lymphadenopathy. Lymph nodes are largely subcentimeter and may relate to lymphatic congestion. Maybe need follow up CAT scan. 14. Deep venous thrombosis prophylaxis, on Eliquis. 15. Disposition: Observation in tele floor. PT, OT prior to discharge. Expect discharge home and follow with his family. Social Service to help with discharge planning. Code status Level 1 full code as per my discussion with the family. MTDD
[2018-12-31] MEDS ORDERED: PSYLLIUM 58.6% POWDER PACKET PO PRN (21:42)
[2018-12-31] MEDS ORDERED: ONDANSETRON INJ 2 MG/ML 2 ML VIAL IV PRN (21:42)
[2018-12-31] MEDS ORDERED: AMITRIPTYLINE HCL 50 MG TAB PO SCH (21:42)
[2018-12-31] MEDS ORDERED: ALUMINUM/MAGNESIUM SUSP 30 ML UDC PO PRN (21:42)
[2018-12-31] MEDS ORDERED: METOPROLOL TARTRATE 1 MG/ML VIAL IV PRN (21:42)
[2018-12-31] MEDS ORDERED: BUTALBITAL/ACETAMIN/CAFFEINE TAB PO PRN (21:42)
[2018-12-31] MEDS ORDERED: NITROGLYCERIN SL 0.4 MG/TAB TAB SL PRN (21:42)
[2018-12-31] MEDS ORDERED: SIMVASTATIN 20 MG TAB PO SCH (21:42)
[2018-12-31] MEDS ORDERED: DEXTROSE 50% 50 ML SYRINGE IV PRN (22:00)
[2018-12-31] MEDS ORDERED: GLUCOSE 10 TABS/TUBE PO PRN (22:00)
[2018-12-31] MEDS ORDERED: GLUCOSE 40% GEL 15 GM TUBE PO PRN (22:00)
[2018-12-31] MEDS ORDERED: CARBOHYDRATES FOR HYPOGLYCEMIA PO PRN (22:00)
[2018-12-31] MEDS ORDERED: GLUCAGON FOR INJ 1 MG VIAL SQ PRN (22:00)
[2018-12-31] MEDS: NYSTATIN/TRIAMCIN OINT 15 GM TUBE EXT SCH (23:03)
[2018-12-31] MEDS: metroNIDAZOLE 0.75% TOPICAL GEL 45 GM TUBE TOP SCH (23:03)
[2018-12-31] MEDS: ACETAMINOPHEN 325 MG TAB PO PRN (23:04)
[2018-12-31] MEDS: LORazepam 0.5 MG TAB PO SCH (23:04)
[2018-12-31] MEDS: CALCIUM 600MG + VIT D 400 IU TAB PO SCH (23:06)
[2018-12-31] MEDS: DOCUSATE SODIUM 100 MG CAP PO SCH (23:06)
[2018-12-31] MEDS: HydrALAZINE TAB 50 MG TAB PO SCH (23:06)
[2018-12-31] MEDS: APIXABAN 2.5 MG TAB PO SCH (23:06)
[2018-12-31] MEDS: DICLOFENAC SOD 1% GEL 100 GM TUBE EXT SCH (23:06)
[2018-12-31] MEDS: INSULIN ASPART 100 UNITS/ML 3 ML PEN SC SCH (23:07)
[2018-12-31] MEDS: NITROGLYCERIN 2% OINTMENT 30GM TUBE EXT SCH (23:25)
[2018-12-31] MEDS: ARTIFICIAL TEARS OPB SCH (23:25)
[2019-01-01] MEDS: NITROGLYCERIN 2% OINTMENT 30GM TUBE EXT SCH ×2 (06:05→12:03)
--- NOTE | 2019-01-01 06:55 | Discharge Summary ---
Date of Service January 01, 2019 Admission HPI Per Admitting Provider This is an 88-year-old female with a past medical history significant for diabetes, chronic kidney stage IV, hyperlipidemia, secondary hyperparathyroidism, pulmonary hypertension, atrial fibrillation, CAD, diastolic heart failure, chronic respiratory failure on 3 liters oxygen all the time, history of CVA, hypertension, history of vertebral compression fractures, anemia of chronic kidney disease, iron deficiency anemia status post cardiac pacemaker, anxiety, history of pelvic fracture. The patient lives alone, she has caregiver who checks on her every day. She walks without any support, was brought in because of chest pain in the afternoon. The patient states she started having chest pain and left-sided chest pressure like feeling, no radiation and she is anxious. She was brought in because her blood pressure was high in 200s, given ____ IV hydralazine and nitro paste and also given aspirin 325 mg. Troponin is negative. EKG, no significant change. Currently, she says the pain is gone, but seems to be coming back again. She states she is feeling anxious, very hard of hearing. Sons are in the room and caregiver in the room. ____. The patient has complaints of some headaches. Vision is okay. She is eating okay. There is no dysphagia, no nausea, no lightheadedness, no dizziness, no shortness of breath, no cough, no fevers, no abdominal pain. Normal bowel and bladder movements. She has constipation uses stool softener, but denies any blood in the stools or black stools. No rash. Admission Exam Per Admitting Provider PHYSICAL EXAMINATION: GENERAL: The patient is old and frail, not in acute distress. VITAL SIGNS: Temperature 36.6, pulse 79, respiratory rate 18, blood pressure when she came in was 201/97, currently 187/85, oxygen 100% on 3 liters. HEENT: No pallor, no icterus. Pupils equal, round, and reactive to light. NECK: No JVD, no neck masses, no carotid bruits. CARDIOVASCULAR: S1, S2 heard, regular rate and rhythm, no murmur, no gallop. RESPIRATORY SYSTEM: Normal AP diameter. No accessory muscle use. No wheezing, no crackles. ABDOMEN: Soft, bowel sounds present, nontender. No distention. CENTRAL NERVOUS SYSTEM: Alert, awake and oriented. Speech is clear. Hard of hearing. Moves extremities, unable to lift her leg up and hold there. No pronator drift. Coordination of movements normal. External ocular muscles intact. EXTREMITIES: Trace pedal edema. No erythema seen. Principal Diagnosis Chest Pain HTN Urgency Headache Acute on chronic Diastolic CHF Discharge Exam ROS-+ Headache on NTG paste, No Visual Changes, No Nausea, No Vomiting, No Fever, No Chills, No Neck Pain or Stiffness, No Chest Pain, No Palpitations, No SOB, No RAMOS, No Cough, No Sputum, No Wheezing, No Abdominal Pain, No Diarrhea, No Hematemesis, No Hemoptysis, No Unexpected Weight Loss, No Flank pain, No Melena, No Hematochezia, No Frequency, No Urgency, No Burning, No Hematuria, No Rashes, No Diaphoresis. Appetite is Normal Physical Exam Gen-AAO x 3, NAD, Afebrile, [place] Head-NCAT, EOMI, PERRLA, Anicteric Sclera, No Posterior Pharyngeal Erythema Neck-Supple, No JVD, No Thyromegaly, No Masses, No LAD, No Bruits Lungs-Clear to Auscultation Bilaterally, No Rales, No Rhonchi, No Wheezing, No Crepitus Chest-No S4, +S1, +S2, No S3, No Murmurs, No Rubs, No Gallops, No Ectopy Abdomen-Soft, Bowel Sounds Present, Non Tender, Non Distended, No Hepatomegaly, No Splenomegaly, No Palpable Masses, No Rebound, No Rigidity, No Guarding Musculoskeletal-Full Range of Motion Bilaterally, No CVAT Extremities-No Cyanosis, No Clubbing, No Edema Nuero-Cranial Nerves II-XII grossly intact, Motor WNL, DTRs WNL, Strength WNL, Non Focal Psych-Normal Mood Discharge Data Allergies Allergy/AdvReac Type Severity Reaction Status Date / Time celery Allergy Severe pt states Verified 12/31/18 17:58 her "throat swells". hydrocodone Allergy Intermediate RASH, Verified 12/31/18 17:58 HALLUCINATIONS DANIEL Inhibitors Allergy Unknown on Verified 12/31/18 17:58 [facility] record, pt not aware Consultations 12/31/18 19:02 ED Decision to Admit Stat 12/31/18 21:42 Consult Case Management - Discharge Planning Routine 01/01/19 08:00 Consult Cardiology Routine Allergies celery Allergy (Severe, Verified 12/31/18 17:58) pt states her "throat swells". hydrocodone Allergy (Intermediate, Verified 12/31/18 17:58) RASH, HALLUCINATIONS DANIEL Inhibitors Allergy (Unknown, Verified 12/31/18 17:58) on [facility] record, pt not aware Height/Weight/Isolation Height 5 ft 6 in Weight 63.6 kg Chemistry 12/31/18 17:54 Sodium 140 Potassium 4.1 Chloride 100 Carbon Dioxide 34 H Anion Gap 6.0 BUN 42 H Creatinine 1.61 H Glucose 123 H Hospital Course (1) Hypertensive urgency: (2) Chest pain, precordial: (3) Chronic kidney disease, stage 4 (severe): (4) Anemia: (5) Hypertension: (6) Secondary hyperparathyroidism: (7) Acute on chronic diastolic CHF (congestive heart failure): ASSESSMENT AND PLAN: This is an 88-year-old female who presents with chest pain and hypertensive urgency. 1. Chest pain. Initial workup is unremarkable. We will continue nitro paste and the patient was given full dose aspirin in the ER. History of coronary artery disease in the past. The patient is already on statin. Cardiac enzymes, echocardiogram. Cardiology for further recommendations. DC later today if w/u negative 2. Hypertensive urgency. Systolic blood pressure was 200 when she came in, BP 145/62, lasix increased and norvasc added 3. A/C Diastolic congestive heart failure. Cards to [facility], Echo, Lasix 4. Chronic kidney disease stage IV. Baseline creatinine is 1.6 5. History of atrial fibrillation, status post pacemaker, on Eliquis. 6. Iron deficiency anemia. Continue iron. 7. Anemia of chronic kidney disease, on iron supplements and also get Darbepoetin monthly. 8. Diabetes. 9. Anxiety. Continue home Ativan. 10. Hyperlipidemia. Continue statin. 11. Pulmonary hypertension, severe on last echo. Echocardiogram today 12. Chronic respiratory failure on 3 liters oxygen. 13. Nonspecific Lymphadenopathy. Maybe need follow up CAT scan. 14. Deep venous thrombosis prophylaxis, on Eliquis. 15. Disposition: [place]n home d/w Dr Dick Total Time Total Time Spent Total Time Spent (In Minutes): 45 mins Total Time Includes: Examination of the Patient, Discharge Planning, Medication Reconciliation and Communication With Other Providers Discharge Plan Discharge Items Patient Disposition: Home - Self-Care Reason For Visit: CHEST PAIN Discharge Diagnosis: Chest Pain HTN Urgency Headache Acute on chronic Diastolic CHF Condition on Discharge: Good Activity: Resume your previous activity Lifting: Gradually increase as tolerated Bathing: No limitations Exercise/Sports: Gradually increase as tolerated Weightbearing: Full weightbearing Non-emergency contact: Primary Care Provider, Hotel Or Motel Manager and Topology Professor Call non-emergency contact if: you have any medication questions Follow-up/Referrals: Levi Lancaster MD [Physician] - (1-2 weeks) Moe Dick MD [Physician] - (2-3 weeks) Cedric Sharp DO [Primary Care Provider] - Diet: Carb Consistent or DM2 and Heart Healthy Fluids: 1200ml (5 cups) Addtl Attending Provider Instructions: BP office checks Pending Studies at Discharge: No Stand-Alone Forms: My [facility] Medications and DC Order Prescriptions: New furosemide 40 mg Tablet 60 mg PO DAILY Qty: 45 RF: 0 amlodipine 5 mg tablet 5 mg PO DAILY Qty: 30 RF: 0 Continued magnesium oxide 400 mg Capsule 400 mg PO QAM Qty: 0 RF: 0 simvastatin 20 mg Tablet 20 mg PO HS Qty: 0 RF: 0 polyethylene glycol 3350 17 gram Powder In Packet 17 g PO DAILY Qty: 0 RF: 0 docusate sodium [Colace] 100 mg Capsule 100 mg PO BID Qty: 0 RF: 0 Lantus U-100 Insulin 100 unit/mL Solution 8 units SC DAILY Qty: 0 RF: 0 Eliquis 2.5 mg Tablet 2.5 mg PO BID Qty: 0 RF: 0 amitriptyline 50 mg Tablet 50 mg PO HS Qty: 0 RF: 0 hydralazine 50 mg Tablet 50 mg PO BID Qty: 0 RF: 0 zqzenvavar-cchrcntfzbfcu-mlbs 50-325-40 mg tablet 1 - 2 tab PO Q4 PRN (Reason: Headache) RF: 0 lorazepam 0.5 mg tablet 0.5 mg PO BID RF: 0 darbepoetin grayson in polysorbat 40 mcg/mL solution 40 mcg subcut MONTHLY RF: 0 ferrous sulfate [iron] 325 mg (65 mg iron) Tablet 325 mg PO DAILY RF: 0 PreserVision AREDS [id number] Capsule 1 cap PO DAILY RF: 0 Systane Balance 0.6 % Drops 1 drp OPB BID RF: 0 nystatin-triamcinolone 100,000-0.1 unit/gram-% Ointment 1 applic TOPICAL BID RF: 0 metronidazole 0.75 % Cream 1 applic TOPICAL BID RF: 0 diclofenac sodium [Voltaren] 1 % Gel 4 g TOPICAL BID RF: 0 Novolog U-100 Insulin aspart 100 unit/mL Solution 4 unit SUBCUT TIDM RF: 0 calcium carbonate-vitamin D3 [Calcium 600 + D(3)] 600 mg(1,500mg) -400 unit Tablet 1 tab PO BID RF: 0 psyllium Powder 1 dose PO DIRECTED RF: 0 Discontinued furosemide 40 mg tablet 40 mg PO DAILY RF: 0 Discharge Orders: Discharge Order (Routine); Ordered 01/01/19 Ordered By: Jl Bo Admission Data Admit Date/Time: 12/31/18 19:52 Attending Provider: Jl Bo Admit Provider: Wilfrido Polanco Primary Care Provider: Cedric Sharp Other Providers: Wilfrido Polanco ; Moe Dick
[2019-01-01] MEDS: INSULIN ASPART 100 UNITS/ML 3 ML PEN SC SCH ×2 (08:23→12:06)
[2019-01-01] MEDS: HydrALAZINE TAB 50 MG TAB PO SCH (08:26)
[2019-01-01] MEDS: APIXABAN 2.5 MG TAB PO SCH (08:27)
[2019-01-01] MEDS: DOCUSATE SODIUM 100 MG CAP PO SCH (08:27)
[2019-01-01] MEDS: LORazepam 0.5 MG TAB PO SCH (08:30)
[2019-01-01] MEDS: ARTIFICIAL TEARS OPB SCH (08:33)
[2019-01-01] MEDS: DICLOFENAC SOD 1% GEL 100 GM TUBE EXT SCH (08:38)
[2019-01-01] MEDS: NYSTATIN/TRIAMCIN OINT 15 GM TUBE EXT SCH (08:38)
[2019-01-01] MEDS: metroNIDAZOLE 0.75% TOPICAL GEL 45 GM TUBE TOP SCH (08:38)
[2019-01-01] MEDS ORDERED: MAGNESIUM OXIDE 400 MG TAB PO SCH (09:00)
[2019-01-01] MEDS ORDERED: FERROUS SULFATE 325 MG TAB PO SCH (09:00)
[2019-01-01] MEDS ORDERED: POLYETHYLENE (MIRALAX) 17 GM PACK PO SCH (09:00)
[2019-01-01] MEDS ORDERED: INSULIN GLARGINE SOLOSTAR 100 UNITS/ML 3 ML PEN SC SCH (09:00)
[2019-01-01] MEDS ORDERED: FUROSEMIDE 40 MG TAB PO SCH (09:00)
[2019-01-01] MEDS ORDERED: CEROVITE ADV FORMULA TAB PO SCH (09:00)
[2019-01-01] MEDS: CALCIUM 600MG + VIT D 400 IU TAB PO SCH (10:56)
[2019-01-01] MEDS: ACETAMINOPHEN 325 MG TAB PO PRN (12:04)
--- NOTE | 2019-01-01 12:22 | Cardiology Consultation ---
Date of Consultation January 01, 2019 Assessment & Plan (1) Chest pain, precordial: While she likely has an element of coronary disease given her other comorbidities and advanced age, I do not believe her recent symptoms were related to an acute coronary event. She had an extended episode without significant elevation in her biomarkers. She continues to have similar complaints without objective evidence of ischemia. (2) Hypertension: Her blood pressure was markedly elevated at the time of admission. Some of this could be related to her discomfort in likely anxiety at the time of initial evaluation. Review of her records suggests reasonable control overall but she may benefit from more aggressive blood pressure control. Her current regimen consists only of hydralazine. Perhaps addition of low-dose amlodipine will also be helpful. (3) Elevated troponin: Her initial markers were normal. Subsequent markers have been just above the cutoff for normal. Review of her records suggest that she has had more elevated markers in the past. This is likely due to her renal failure, known LVH and significant hypertension. Again, the current pattern and degree of elevation is not consistent with a recent acute coronary syndrome. (4) Atrial fibrillation: Permanent. No symptoms. Adequate rate control. On appropriately dosed anticoagulation History of Present Illness Reason for Consultation: Chest pain Requesting Physician: Sherri Attending Physician: Jl Bo DO History of Present Illness The patient is an 88-year-old woman with a known history of permanent atrial fibrillation, permanent pacemaker implantation, hypertension mitral regurgitation as well as diastolic heart failure who was admitted for symptoms of chest discomfort. It appears that the patient again had symptoms of left- sided chest discomfort yesterday morning around 10:30 a.m.. She normally has a home health aide who comes to see her in the afternoon and mentioned to the healthy that she was having the symptoms. The symptoms are also associated with some minor epigastric discomfort and nausea. It seems at the time of evaluation her blood pressure was markedly elevated and based on her symptoms she was transferred to the emergency room. The patient states that the symptoms lasted for couple of hours prior to gradual resolution. In fact, the symptoms seem to have persisted to some degree even today. Her symptoms appear to have migrated to some degree and now include the epigastrium and a sense of nausea. She also has a headache which has been present for 2 days. She did take her usual analgesics which is Fioricet without relief. She claims otherwise to have been feeling well. She does suffer from chronic constipation and this appears to be worse lately. She Has COPD and uses oxygen routinely. Her breathing appears to have been stable although not normal. She did have a sense of palpitation associated with some events yesterday. This is fairly transient and did not result in significant dizziness or syncope Allergies Allergy/AdvReac Type Severity Reaction Status Date / Time celery Allergy Severe pt states Verified 12/31/18 17:58 her "throat swells". hydrocodone Allergy Intermediate RASH, Verified 12/31/18 17:58 HALLUCINATIONS DANIEL Inhibitors Allergy Unknown on Verified 12/31/18 17:58 [facility] record, pt not aware Home Medications Home Medications Medication Instructions Recorded Confirmed Type magnesium oxide 400 mg PO QAM #0 04/09/11 12/31/18 History simvastatin 20 mg PO HS #0 04/07/14 12/31/18 History polyethylene glycol 3350 17 g PO DAILY #0 06/07/14 12/31/18 History docusate sodium [Colace] 100 mg PO BID #0 cap 03/23/15 12/31/18 History Eliquis 2.5 mg PO BID #0 08/26/15 12/31/18 History Lantus U-100 Insulin 8 units SC DAILY #0 vial 08/26/15 12/31/18 History amitriptyline 50 mg PO HS #0 03/19/16 12/31/18 History hydralazine 50 mg PO BID #0 tab 03/19/16 12/31/18 History PreserVision AREDS 1 cap PO DAILY 02/13/18 12/31/18 History Systane Balance 1 drp OPB BID 02/13/18 12/31/18 History nrazqxgurf-zalzbvgpsizcu-btge 1 - 2 tab PO Q4 PRN 02/13/18 12/31/18 History darbepoetin grayson in polysorbat 40 mcg SUBCUT MONTHLY 02/13/18 12/31/18 History diclofenac sodium [Voltaren] 4 g TOPICAL BID 02/13/18 12/31/18 History ferrous sulfate [iron] 325 mg PO DAILY 02/13/18 12/31/18 History lorazepam 0.5 mg PO BID 02/13/18 12/31/18 History metronidazole 1 applic TOPICAL BID 02/13/18 12/31/18 History nystatin-triamcinolone 1 applic TOPICAL BID 02/13/18 12/31/18 History calcium carbonate-vitamin D3 1 tab PO BID 04/12/18 12/31/18 History [Calcium 600 + D(3)] insulin aspart U-100 [Novolog 4 unit SUBCUT TIDM 04/12/18 12/31/18 History U-100 Insulin aspart] psyllium 1 dose PO DIRECTED 04/12/18 12/31/18 History furosemide 40 mg tablet 40 mg PO DAILY tab 11/18/18 12/31/18 History furosemide 60 mg PO DAILY #45 tab 01/01/19 Rx Patient History Medical History Chronic kidney disease, stage 4 (severe) (Chronic) Anemia (Chronic) Hypertension (Chronic) Proteinuria (Chronic) Secondary hyperparathyroidism (Chronic) Anemia (Acute) CAD (coronary artery disease) (Acute) CHF (congestive heart failure) (Acute) Chronic respiratory failure (Acute) Diabetes 1.5, managed as type 2 (Acute) Diabetic peripheral neuropathy (Acute) HTN (hypertension) (Acute) Hx of chest pain (Acute) Hx of herpes zoster (Acute) Pacemaker (Acute) Renal cyst (Acute) Skin cancer (Acute) Stroke (Acute) Atrial fibrillation Eye infection Bilateral eyes. 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 Has a life alert necklace Other Information That Helps Us Care for You: No Feels Safe at Home: Yes Safety Concerns: Feels Safe At This Time Smoking Status: Never smoker Second Hand Exposure: No ; Hx Alcohol Use: No Hx Substance Use: No Review of Systems Review of Systems: All systems reviewed & are unremarkable except as noted in HPI & below Physical Exam Physical Exam: She is alert and oriented x3. Mood affect appear normal. She answered all questions appropriately. HEENT: Sclerae are anicteric. Pupils are equal and reactive to light and accommodation. Extraocular movements were intact. Neuro: Cranial nerves intact Neck: Examination of the submandibular region did not reveal any significant lymphadenopathy. Carotids are palpable bilaterally and free of bruits on auscultation. There was no evidence of jugular venous distention. The thyroid was not enlarged. Lungs: Lungs are clear to auscultation bilaterally. There are no rales wheezes or rhonchi. She has normal respiratory effort without use of accessory muscles. There is normal pulmonary excursion. Cardiac: The rhythm was regular. S1 and S2 were normal. There are no murmurs on examination. The PMI was not markedly displaced on palpation. Chest: Well-healed pacemaker implant in the right upper chest area Abdomen: The abdomen was soft and nontender. Extremities: Patient has bilateral radial pulses that are equal in intensity. There is no evidence cyanosis or clubbing. There was no evidence of significant peripheral edema bilaterally. Skin: There are no rashes noted on examination today. Results & Data Vital Signs (Past 12 Hours) Vital Signs Temp Pulse Resp BP Pulse Ox 01/01/19 10:49 36.5 C 82 18 131/64 96 01/01/19 07:56 36.6 C 72 19 142/62 H 100 01/01/19 06:04 145/62 H 01/01/19 03:21 36.7 C 77 17 109/51 L 97 Laboratory Results Abnormal Lab Results 12/31/18 12/31/18 12/31/18 17:54 17:54 20:38 WBC 4.81 RBC 3.10 L Hgb 9.8 L Hct 31.4 L MCV 101.3 H MCH 31.6 MCHC 31.2 L RDW Std Deviation 52.3 H RDW Coeff of Josh 14.2 Plt Count 146 MPV 10.1 Immature Gran % (Auto) 0.0 Neut % (Auto) 68.4 Lymph % (Auto) 15.4 Aiken % (Auto) 8.7 Eos % (Auto) 7.1 Baso % (Auto) 0.4 Immature Gran # (Auto) 0.00 Neut # (Auto) 3.29 Lymph # (Auto) 0.74 L Aiken # (Auto) 0.42 Eos # (Auto) 0.34 Baso # (Auto) 0.02 Sodium 140 Potassium 4.1 Chloride 100 Carbon Dioxide 34 H Anion Gap 6.0 BUN 42 H Creatinine 1.61 H Est Cr Clr Drug Dosing 22.2 Est GFR ( Amer) 32.5 Est GFR (Non-Af Amer) 28.1 BUN/Creatinine Ratio 25.9 H Glucose 123 H POC Glucose 162 H Calcium 10.0 Total Bilirubin 0.3 AST 19 ALT 19 Alkaline Phosphatase 77 Troponin I 0.044 Total Protein 8.3 H Albumin 4.4 Globulin 3.9 Albumin/Globulin Ratio 1.1 Lipase 258 01/01/19 01/01/19 01/01/19 05:24 11:10 11:57 WBC RBC Hgb Hct MCV MCH MCHC RDW Std Deviation RDW Coeff of Josh Plt Count MPV Immature Gran % (Auto) Neut % (Auto) Lymph % (Auto) Aiken % (Auto) Eos % (Auto) Baso % (Auto) Immature Gran # (Auto) Neut # (Auto) Lymph # (Auto) Aiken # (Auto) Eos # (Auto) Baso # (Auto) Sodium Potassium Chloride Carbon Dioxide Anion Gap BUN Creatinine Est Cr Clr Drug Dosing Est GFR ( Amer) Est GFR (Non-Af Amer) BUN/Creatinine Ratio Glucose POC Glucose 203 H Calcium Total Bilirubin AST ALT Alkaline Phosphatase Troponin I 0.055 H* 0.059 H* Total Protein Albumin Globulin Albumin/Globulin Ratio Lipase Diagnostic Findings Chest x-ray obtained at the time of admission reveals some chronic changes in perhaps mild bilateral pleural effusions Echocardiogram performed today revealed preserved LV systolic function with only minor valvular heart disease. Essentially unchanged from previous Performed a complete device interrogation which did not reveal any recent arrhythmias. Normal function ECG Additional Comments: No discernible atrial rhythm. Wide complex QRS with ST segment changes consistent with left ventricular hypertrophy PG Care Time/CCT Total # of Minutes Spent Total Time Spent with Patient: Total time spent is greater than 50% in coordination of care (as documented) at patient's floor/unit and/or counseling patient:
== END 2019-01-01 15:20 | disposition home or self-care (01) ==
LOC: ED 17:20 → 2E 17:20